=== PATIENT | male | born 1990 | race Two or more races ===

== ENCOUNTER 2022-02-09 21:46 | Emergency (ER) | payer SELFPAY ==
[~2022-02-09] VITALS: Ht 177.8 cm; Wt 92.0 kg
[2022-02-09] MEDS ORDERED: SODIUM CHLORIDE 0.9% 1,000 ML IV ONE (23:30)
[2022-02-09] MEDS ORDERED: ETOMIDATE (2MG/ML) 20ML VIAL IV ONE (23:30)
[2022-02-10 00:03] LABS: Basophils # (auto) 0.1 10 ^3/uL (0-0.2); Basophils % (auto) 0.8 % (0.0-2.0); Eosinophils # (auto) 0.1 10 ^3/uL (0-0.8); Eosinophils % (auto) 0.9 % (0.0-7.0); Hematocrit 42.5 % (41.0-53.0); Hemoglobin 14.6 g/dL (13.5-17.5); Lymphocytes # (auto) 3.7 10 ^3/uL (0.4-5.4); Mean Corpuscular Hemoglobin 29.6 pg (28.0-32.0); Mean Corpuscular Hgb Conc. 34.2 g/dL (32.0-36.0); Mean Corpuscular Volume 86.5 fL (80.0-100.0); Monocytes # (auto) 0.6 10 ^3/uL (0-1.3); Monocytes % (auto) 6.1 % (0.0-12.0); Neutrophils % (auto) 53.2 % (37.0-80.0); Nucleated Red Blood Cells % 0.1 %; Red Blood Cells 4.92 10^6/uL (4.5-5.90); Red Cell Distribution Width 12.8 % (11.8-14.3); White Blood Cell 9.5 10^3/uL (4.4-10.8)
[2022-02-10 00:18] LABS: INR 0.9 (0.9-1.15); Partial Thromboplastin Time 27.9 sec (24.6-33.4)
[2022-02-10 00:46] LABS: Albumin 3.9 g/dL (3.4-5.0); BUN/Creatinine Ratio 21.1; Calcium 8.4 mg/dL (8.5-10.1)
[2022-02-10 00:49] LABS: Bilirubin, Total 0.3 mg/dL (0.2-1.0); Total Protein 7.4 g/dL (6.4-8.2)
[2022-02-10] MEDS ORDERED: ETOMIDATE (2MG/ML) 20ML VIAL IV ONE (02:00)
[2022-02-10] MEDS ORDERED: HYDROcodone-ACET 10/325MG TAB PO ONE (02:45)
[2022-02-10 05:00] VITALS: BP 128/71
== END 2022-02-10 05:40 | disposition home or self-care (01) ==
LOC: ER 21:46
DX: S42.402A Unspecified fracture of lower end of left humerus, initial encounter for closed fracture (principal); W19.XXXA Unspecified fall, initial encounter; Y93.89 Activity, other specified; Y92.89 Other specified places as the place of occurrence of the external cause; Y99.8 Other external cause status
CPT/HCPCS: 24600; 36415; 73070; 73080; 80053; 85025; 85610; 85730; 96360; 99152; 99285; J7030